=== PATIENT | female | born 1995 | race Two or more races ===

== ENCOUNTER 2020-11-07 21:54 | Inpatient (IN) | payer MEDICAID ==
[~2020-11-07] VITALS: Ht 172.7 cm; Wt 108.2 kg
[2020-11-07] MEDS ORDERED: OXYcodone IR 5MG TABLET PO PRN ×3 (23:30)
[2020-11-07] MEDS ORDERED: LACTATED RINGERS 1,000 ML IV SCH (23:30)
[2020-11-07] MEDS ORDERED: ACETAMINOPHEN 325 MG TABLET PO PRN (23:30)
[2020-11-07] MEDS ORDERED: RHOGAM FROM BLOOD BANK 1 NOTE EA IM/IV PRN (23:30)
[2020-11-07] MEDS ORDERED: OXYTOCIN 30U/ 0.9% NaCL 500ML 500 ML IV ONE (23:30)
[2020-11-07] MEDS ORDERED: IBUPROFEN 600 MG TABLET PO PRN (23:30)
[2020-11-07] MEDS ORDERED: ONDANSETRON 2MG/ML, 2ML IVPush PRN (23:30)
[2020-11-07] MEDS ORDERED: MISOPROSTOL 200 MCG TABLET PR PRN (23:30)
[2020-11-07] MEDS ORDERED: OXYTOCIN 30U/ 0.9% NaCL 500ML 500 ML IV PRN (23:30)
[2020-11-07 23:39] VITALS: BP 120/75
[2020-11-07 23:53] LABS: MICROSCOPIC INDICATED
[2020-11-07] MEDS ORDERED: MISOPROSTOL 25 MCG TABLET ONE (23:55)
[2020-11-08] LABS: AMPHETAMINE SCREEN, URINE Negative (Negative); BARBITURATE SCREEN, URINE Negative (Negative); BENZODIAZEPINE SCREEN, URINE Negative (Negative); CANNABINOID SCREEN, URINE Negative (Negative); COCAINE SCREEN, URINE Negative (Negative); METHADONE SCREEN, URINE Negative (Negative); OPIATE SCREEN, URINE Negative (Negative)
[2020-11-08] MEDS ORDERED: ZOLPIDEM 10MG TABLET PO PRN
[2020-11-08] MEDS ORDERED: MISOPROSTOL 25 MCG TABLET ONE (00:11)
[2020-11-08] MEDS: MISOPROSTOL 25 MCG TABLET VG SCH ×2 (00:15→04:45)
[2020-11-08 00:18] LABS: BASOPHILS % (AUTO) 0 % (0-1); EOSINOPHILS % (AUTO) 1 % (1-7); LYMPHOCYTES % (AUTO) 13 % (22-44); MEAN CORPUSCULAR HEMOGLOBIN 30.8 pg (27.0-34.8); MEAN CORPUSCULAR HGB CONC 33.9 g/dL (32.4-35.8); MEAN PLATELET VOLUME 8.8 fL (7.4-10.4); MONOCYTES % (AUTO) 8 % (2-9); NEUTROPHILS % (AUTO) 78 % (42-75); PLATELET COUNT 217 x10^3/uL (130-400); RED BLOOD COUNT 4.55 x10^6/uL (3.82-5.3); RED CELL DISTRIBUTION WIDTH 13.5 % (9.6-15.2)
[2020-11-08] MEDS ORDERED: ZOLPIDEM 5MG TABLET ONE ×2 (00:18→23:13)
[2020-11-08 00:28] LABS: ALANINE AMINOTRANSFERASE 16 U/L (12-78); ALBUMIN 2.6 g/dL (3.4-5.0); ANION GAP 9 mmol/L (5-15); CALCIUM 8.7 mg/dL (8.5-10.1); CHLORIDE 109 mmol/L (98-107); CREATININE 0.46 mg/dL (0.55-1.02)
[2020-11-08] MEDS ORDERED: PLEASE ENTER ALLERGIES MC SCH (00:30)
[2020-11-08 00:32] LABS: INTERNATIONAL NORMALIZED RATIO 0.88 (0.93-1.1); PROTHROMBIN TIME 9.5 Seconds (9.6-11.5)
[2020-11-08 00:38] LABS: ALKALINE PHOSPHATASE 178 U/L (45-117); BILIRUBIN,TOTAL 0.3 mg/dL (0.2-1.0); TOTAL PROTEIN 7.4 g/dL (6.4-8.2)
[2020-11-08] MEDS ORDERED: MISOPROSTOL 25 MCG TABLET PO PRN ×2 (08:30→17:00)
[2020-11-08] MEDS ORDERED: MISOPROSTOL 25 MCG TABLET VG PRN ×2 (13:30→17:00)
[2020-11-08] MEDS ORDERED: MISOPROSTOL 100 MCG TABLET ONE ×2 (14:04→17:00)
[2020-11-08] MEDS ORDERED: OXYTOCIN 30U/ 0.9% NaCL 500ML 500 ML IV PRN (20:30)
[2020-11-09] MEDS ORDERED: ZOLPIDEM 5MG TABLET ONE (02:51)
[2020-11-09] MEDS ORDERED: FENTANYL PF 100 MCG/2ML ONE (07:17)
[2020-11-09] MEDS: FENTANYL PF 100 MCG/2ML IVPush PRN ×2 (07:20→09:15)
[2020-11-09] MEDS ORDERED: D5%-LACTATED RINGERS 1,000 ML IV SCH (10:30)
[2020-11-09] MEDS: morphine SULFATE 10 MG/ML, 1ML IVPush PRN ×2 (10:56→13:20)
[2020-11-09] MEDS ORDERED: LIDOCAINE 1%, 20ML ONE (13:10)
[2020-11-09] MEDS ORDERED: METHYLERGONOVINE 0.2 MG/ML IM PRN (13:30)
[2020-11-09] MEDS ORDERED: OXYcodone IR 5MG TABLET PO PRN (13:30)
[2020-11-09] MEDS ORDERED: TRANEXAMIC ACID 100 MG/ML, 10ML IV ONE (13:30)
[2020-11-09] MEDS ORDERED: DOCUSATE 100 MG CAPSULE PO PRN (13:30)
[2020-11-09] MEDS ORDERED: OXYcodone/APAP 5/325MG TABLET PO PRN (13:30)
[2020-11-09] MEDS ORDERED: MISOPROSTOL 200 MCG TABLET PR PRN (13:30)
[2020-11-09] MEDS ORDERED: CARBOPROST TROMETHAMINE 250 MCG/ML, 1ML IM PRN (13:30)
[2020-11-09] MEDS ORDERED: ACETAMINOPHEN 325 MG TABLET PO PRN ×2 (13:30)
[2020-11-09] MEDS ORDERED: OXYTOCIN 30U/ 0.9% NaCL 500ML 500 ML IV SCH (13:30)
[2020-11-09] MEDS ORDERED: MAGNESIUM HYDROXIDE 8%, 30ML UDC PO PRN (13:30)
[2020-11-09] MEDS ORDERED: ONDANSETRON 2MG/ML, 2ML IV PRN (13:30)
[2020-11-09] MEDS ORDERED: OXYTOCIN 10 UNITS/ML, 1ML IM PRN (13:30)
[2020-11-09] MEDS ORDERED: SIMETHICONE 80 MG CHEW TAB PO PRN (13:30)
[2020-11-09] MEDS ORDERED: CALCIUM CARBONATE 500 MG TAB.CHEW PO PRN (13:30)
[2020-11-09] MEDS ORDERED: IBUPROFEN 800 MG TABLET PO PRN (13:30)
[2020-11-09 20:29] VITALS: BP 116/75
[2020-11-09] MEDS ORDERED: SODIUM CHLORIDE FLUSH 3ML SYRINGE IVF SCH (21:00)
[2020-11-09 21:13] LABS: BASOPHILS % (AUTO) 0 % (0-1); EOSINOPHILS % (AUTO) 0 % (1-7); LYMPHOCYTES % (AUTO) 8 % (22-44); MEAN CORPUSCULAR HEMOGLOBIN 31.4 pg (27.0-34.8); MEAN CORPUSCULAR HGB CONC 34.3 g/dL (32.4-35.8); MEAN PLATELET VOLUME 8.7 fL (7.4-10.4); MONOCYTES % (AUTO) 9 % (2-9); NEUTROPHILS % (AUTO) 83 % (42-75); PLATELET COUNT 210 x10^3/uL (130-400); RED CELL DISTRIBUTION WIDTH 13.7 % (9.6-15.2)
[2020-11-10 00:05] VITALS: BP 113/69
[2020-11-10] MEDS ORDERED: PRENATAL VIT/IRON/FA 1 EACH TABLET PO SCH (09:00)
== END 2020-11-10 08:10 | disposition home or self-care (01) | DRG 807 ==
LOC: LDOP 21:54 → LDIP 22:07
PROVIDERS: ADMIT Obstetrics & Gynecology; ATTEND Obstetrics & Gynecology
PROC: 10E0XZZ Delivery of Products of Conception, External Approach (ICD-10-PCS; principal; 2020-11-09)
PROC: 3E0P7VZ Introduction of Hormone into Female Reproductive, Via Natural or Artificial Opening (ICD-10-PCS; 2020-11-09)
PROC: 10907ZC Drainage of Amniotic Fluid, Therapeutic from Products of Conception, Via Natural or Artificial Opening (ICD-10-PCS; 2020-11-09)
PROC: 0U7C7ZZ Dilation of Cervix, Via Natural or Artificial Opening (ICD-10-PCS; 2020-11-09)
PROC: 0HQ9XZZ Repair Perineum Skin, External Approach (ICD-10-PCS; 2020-11-09)
DX: O36.4XX0 Maternal care for intrauterine death, not applicable or unspecified (principal); Z37.1 Single stillbirth; Z3A.37 37 weeks gestation of pregnancy; Z20.822 Contact with and (suspected) exposure to COVID-19; O99.824 Streptococcus B carrier state complicating childbirth; O69.1XX0 Labor and delivery complicated by cord around neck, with compression, not applicable or unspecified; O70.0 First degree perineal laceration during delivery
CPT/HCPCS: 36415; 85610; 85613; 85670; 85730; 85732; 86146; 86147; J7121; 80053; 80307; 81001; 83036; 84443; 85025; 85384; 85460; 85598; 86592; 86644; 86645; 86694; 86695; 86696; 86762; 86777; 86778; 86850; 86900; 87086; 87635; 88307; G0378; J2405; J3010; J2270; J2590